=== PATIENT | male | born 1950 | race Caucasian/White ===

== ENCOUNTER 2022-04-07 00:25 | Inpatient (IN) | payer OTHER ==
[~2022-04-07] VITALS: Ht 167.6 cm; Wt 81.6 kg
[2022-04-07 00:25] VITALS: BP 112/78
--- NOTE | 2022-04-07 00:28 | NUR ---
TO BED #05, BIBA FROM HOME, WITH C/O BODY MALAISE
--- NOTE | 2022-04-07 01:00 | NUR ---
71 Y/O M PRESENTS WITH MALAISE. PT STATED "I FEEL WEAK AND TIRED." PT DENIES ANY PAIN AT THE MOMENT. PT IS A&OX4, SKIN INTACT, DENIES ANY NVD. PMH- PT DENIES NKA
[2022-04-07 01:06] LABS: BASOPHILS # (AUTO) 0.1 K/uL (0.00-0.22); BASOPHILS % (AUTO) 0.8 % (0.0-2.0); EOSINOPHILS % (AUTO) 0.5 % (0.0-4.0); HEMOGLOBIN 12.3 g/dL (12.0-18.0); LYMPHOCYTES # (AUTO) 1.2 K/uL (2.0-11.5); MEAN CORPUSCULAR HEMOGLOBIN 31 pg (27-31); MEAN CORPUSCULAR HGB CONC 33 g/dL (33-37); MEAN CORPUSCULAR VOLUME 94.8 fL (80-94); MONOCYTES # (AUTO) 0.6 K/uL (0.8-1.0); MONOCYTES % (AUTO) 9.2 % (1.7-9.3); NEUTROPHILS # (AUTO) 4.8 K/uL (1.8-7.7); NEUTROPHILS % (AUTO) 71.5 % (42.2-75.2); PLATELET COUNT (AUTO) 399 K/uL (140-450); RED CELL DISTRIBUTION WIDTH 14.1 % (11.6-13.7); WHITE BLOOD COUNT (AUTO) 6.7 K/uL (4.8-10.8)
[2022-04-07 01:23] LABS: ALBUMIN 3.2 g/dL (3.4-5.0); ANION GAP 11.2 (8-16); ASPARTATE AMINOTRANSFERASE 36 U/L (15-37); CHLORIDE 103 mmol/L (98-107); CREATININE 1.2 mg/dL (0.6-1.3); GLUCOSE 168 mg/dL (74-106); POTASSIUM 4.2 mmol/L (3.5-5.1); SODIUM SERUM 139 mmol/L (136-145); TOTAL BILIRUBIN 0.7 mg/dL (0.0-1.0); UREA NITROGEN, BLOOD 32 mg/dL (7-18)
--- NOTE | 2022-04-07 01:30 | NUR ---
DR. EVANS AT BEDSIDE
--- NOTE | 2022-04-07 03:30 | NUR ---
PT STATED HE FEELS WEAK AND TIRED
--- NOTE | 2022-04-07 04:25 | NUR ---
Dr. Hermosillo explained results and treatment plans.
[2022-04-07] MEDS ORDERED: NACL 0.9% 500 ML IV ONE (04:50)
[2022-04-07 05:10] LABS: APPEARANCE,URINE CLEAR (CLEAR); BILIRUBIN,URINE NEGATIVE (NEGATIVE); BLOOD, URINE NEGATIVE (NEGATIVE); COLOR,URINE YELLOW (YELLOW); LEUKOCYTE ESTERASE ,URINE NEGATIVE (NEGATIVE); NITRITE, URINE NEGATIVE (NEGATIVE); PH,URINE 5.5 (5.0-9.0); UGLUCOSE NEGATIVE (NEGATIVE)
[2022-04-07 05:47] LABS: BARBITURATE, URINE NEGATIVE ng/ml (NEG <=200); BENZODIAZEPINE, URINE NEGATIVE ng/mL (NEG <=200); CANNABINOID, URINE POSITIVE ng/mL (NEG <=50); COCAINE, URINE NEGATIVE ng/mL (NEG <=300); OPIATE, URINE NEGATIVE ng/mL (NEG <=2000); PHENCYCLIDINE SCREEN,URINE NEGATIVE ng/mL (NEG <=25)
--- NOTE | 2022-04-07 05:55 | NUR ---
daughter awaiting update, stated to call when pt is discharged. daughter number [phone] julee sandoval
--- NOTE | 2022-04-07 06:18 | NUR ---
PT TO CT
--- NOTE | 2022-04-07 06:35 | NUR ---
PT BACK FROM CT AND ON CONDEMNATION ENGINEER
--- NOTE | 2022-04-07 07:23 | NUR ---
Recieved report from TONYA Machuca for transfer of care.
[2022-04-07] MEDS ORDERED: AZITHROMYCIN 500 MG in DEXTROSE 5% 250 ML IV ONE (08:15)
[2022-04-07] MEDS ORDERED: GABA300C PO (08:22)
[2022-04-07] MEDS ORDERED: DULO30EC PO (08:22)
[2022-04-07] MEDS ORDERED: ALBU90AE (08:22)
[2022-04-07] MEDS ORDERED: BACL10TA4 PO (08:22)
[2022-04-07] MEDS ORDERED: METF-713 PO (08:22)
[2022-04-07] MEDS ORDERED: CEFP200T21 PO (08:22)
[2022-04-07] MEDS ORDERED: cefTRIAXone 1,000 MG VIAL ONE (08:23)
[2022-04-07] MEDS ORDERED: NACL 0.9% 1,000 ML IV ONE (08:25)
[2022-04-07] MEDS ORDERED: HYDROcodone/APAP 7.5/325 MG 1 TAB PO PRN (08:40)
[2022-04-07] MEDS ORDERED: DOCUSATE SODIUM 100 MG GELCAP PO PRN (08:40)
[2022-04-07] MEDS ORDERED: ONDANSETRON 4 MG/2 ML VIAL IM/IVP PRN (08:40)
[2022-04-07] MEDS ORDERED: ACETAMINOPHEN 325 MG TAB PO PRN (08:40)
[2022-04-07] MEDS ORDERED: ZOLPIDEM 5 MG TAB PO PRN (08:40)
[2022-04-07] MEDS ORDERED: guaiFENesin DM 200/20 MG-10 ML 10 ML UDC PO PRN (08:40)
[2022-04-07] MEDS ORDERED: POTASSIUM CHLORIDE 10 MEQ TABER PO PRN (08:40)
[2022-04-07] MEDS ORDERED: AZITHROMYCIN 500 MG INJ VIAL IV ONE (08:54)
[2022-04-07] MEDS ORDERED: metFORMIN 850 MG TAB PO SCH (09:00)
[2022-04-07] MEDS: NACL 0.9% 1,000 ML IV SCH ×2 (09:07→21:25)
--- NOTE | 2022-04-07 09:10 | NUR ---
Patient was offered breakfast tray.
[2022-04-07 09:17] LABS: PROTHROMBIN TIME 9.8 secs (10.8-13.4)
--- NOTE | 2022-04-07 09:22 | NUR ---
Dr. Mcneal, admitting doctor, evaluating patient at bedside.
[2022-04-07] MEDS: PANTOPRAZOLE 40 MG TABEC PO SCH (09:35)
[2022-04-07] MEDS: DULoxetine 30 MG CAPDR PO SCH ×2 (09:35→21:22)
[2022-04-07 09:40] LABS: CHOL/HDL RATIO 2.5 (1-4.5); FREE T4 (FREE THYROXINE) 1.05 ng/dL (0.76-1.46); MAGNESIUM 1.8 mg/dL (1.8-2.4); PHOSPHORUS 4.4 mg/dL (2.5-4.9); THYROID STIMULATING HORMONE 0.92 uIU/mL (0.34-3.74)
[2022-04-07] MEDS: BLOOD GLUCOSE MONITORING 1 DEV DEV FS SCH ×3 (11:42→21:23)
--- NOTE | 2022-04-07 11:48 | NUR ---
Patient will be admitted to care of Dr. Mcneal. Admited to Telemetry. Will go to room 111-B. Belongings list completed. Report to GEOVANNA Bartlett.
--- NOTE | 2022-04-07 11:49 | NUR ---
The patient's care was reviewed and supervised by Yulissa Spencer, RN, RN.
[2022-04-07 12:05] VITALS: BP 119/64
--- NOTE | 2022-04-07 12:26 | NUR ---
ADMISSION OF A 71 YEAR OLD MALE UNDER THE CARE OF DOCTOR NATHEN FOR PNEUMONIA/DEHYDRATION/WEAKNESS.
--- NOTE | 2022-04-07 13:17 | NUR ---
CT MECHANICAL HANDYMAN NOTES ANGIO CT RESULTS AVAILABLE VIA THE CHEST/ABDOMEN/PELVIS VIEW THAT WAS TAKEN.
[2022-04-07 13:20] LABS: BARBITURATE, URINE NEGATIVE ng/ml (NEG <=200); BENZODIAZEPINE, URINE NEGATIVE ng/mL (NEG <=200); CANNABINOID, URINE POSITIVE ng/mL (NEG <=50); COCAINE, URINE NEGATIVE ng/mL (NEG <=300); OPIATE, URINE NEGATIVE ng/mL (NEG <=2000); PHENCYCLIDINE SCREEN,URINE NEGATIVE ng/mL (NEG <=25)
[2022-04-07 16:00] VITALS: BP 109/58
--- NOTE | 2022-04-07 16:00 | NUR ---
LEFT ACHILI DRY BROWN SCAB 0.5X0.5CM NOT A DIABETIC ULCER, IT IS FROM RUBBING AGAINST SHOE. POC DISCUSSED WITH PRIMARY RN DOMINIK MAY APPLY SKIN PREP WIPE BID. POC DISCUSSED WITH PT. PT. VERBALIZES UNDERSTANDING.
--- NOTE | 2022-04-07 18:14 | NUR ---
P.T. NOTES P.T. EVAL COMPLETED; REFER TO EVAL FOR DETAILS.
--- NOTE | 2022-04-07 19:54 | NUR ---
PATIENT AWAKE ALERT ORIENTED ON ROOM AIR WITH EPISODE OF CONFUSION. NO SOB NOTED. BREATHING REGULAR NON LABORED. AMBULATORY. ABLE TO COMMUNICATE WITH HIS NEEDS. IV SITE ON THE LEFT HAND 20 GAUGE INFUSING NS 85 ML/HR. CALL LIGHT ON EASY REACH. SAFETY MEASURES IN PLACE.
[2022-04-07 20:00] VITALS: BP 126/72
--- NOTE | 2022-04-07 21:23 | NUR ---
CHECKED BLOOD SUGAR WAS 126. NO INSULIN COVERAGE NEEDED.
--- NOTE | 2022-04-07 21:24 | NUR ---
ADMINISTERED SCHEDULED DUE MEDICATION.
[2022-04-08] VITALS: BP 104/68
[2022-04-08 04:00] VITALS: BP 110/67
[2022-04-08] MEDS: BLOOD GLUCOSE MONITORING 1 DEV DEV FS SCH ×4 (06:43→21:09)
--- NOTE | 2022-04-08 06:52 | NUR ---
PATIENT NEEDS MET THROUGHOUT THE SHIFT. PT STABLE.
[2022-04-08 07:04] LABS: BASOPHILS % (AUTO) 0.3 % (0.0-2.0); EOSINOPHILS # (AUTO) 0.1 K/uL (0-0.4); EOSINOPHILS % (AUTO) 1.9 % (0.0-4.0); HEMOGLOBIN 11.5 g/dL (12.0-18.0); LYMPHOCYTES # (AUTO) 1.3 K/uL (2.0-11.5); LYMPHOCYTES % (AUTO) 20.2 % (20.5-51.1); MEAN CORPUSCULAR HEMOGLOBIN 32 pg (27-31); MEAN CORPUSCULAR HGB CONC 34 g/dL (33-37); MEAN CORPUSCULAR VOLUME 94.4 fL (80-94); MONOCYTES # (AUTO) 0.5 K/uL (0.8-1.0); MONOCYTES % (AUTO) 7.2 % (1.7-9.3); NEUTROPHILS # (AUTO) 4.7 K/uL (1.8-7.7); NEUTROPHILS % (AUTO) 70.4 % (42.2-75.2); PLATELET COUNT (AUTO) 355 K/uL (140-450); RED BLOOD CELL COUNT(AUTO) 3.61 MIL/uL (4.20-6.10); RED CELL DISTRIBUTION WIDTH 13.6 % (11.6-13.7); WHITE BLOOD COUNT (AUTO) 6.6 K/uL (4.8-10.8)
[2022-04-08 07:14] LABS: ANION GAP 10.7 (8-16); CARBON DIOXIDE 27.2 mmol/L (21-32); CHLORIDE 106 mmol/L (98-107); CREATININE 0.8 mg/dL (0.6-1.3); GLUCOSE 115 mg/dL (74-106); POTASSIUM 4.9 mmol/L (3.5-5.1); SODIUM SERUM 139 mmol/L (136-145); UREA NITROGEN, BLOOD 23 mg/dL (7-18)
[2022-04-08 08:08] LABS: T4 (THYROXINE) 5.1 ug/dL (4.5-12.0)
[2022-04-08] MEDS: NACL 0.9% 1,000 ML IV SCH ×2 (08:22→16:10)
[2022-04-08] MEDS: PANTOPRAZOLE 40 MG TABEC PO SCH (08:23)
[2022-04-08] MEDS: DULoxetine 30 MG CAPDR PO SCH ×2 (08:23→21:09)
--- NOTE | 2022-04-08 09:09 | NUR ---
NURSES NOTE PATIENT A/OX3 , RECEIVED AT BED SIDE , AMBULATORY , VSS , SINUS RHYTHM ON MONITOR , ON IV FLUID 85CC/H NO COMPLAIN AT THIS TIME , AMBULATORY , SKIN NOT INTACT SEE SKIN ASSESSMENT , EDUCTION GIVEN ABOUT MEDS PAIN MEDS , CARE PLAN , SAFETY ON PLACE , SIDE RAILS UP X3 , BED IN LOWER POSITION , CALL LIGHT WITHIN REACH . STILL UNDER OBSERVE .
[2022-04-08 09:14] VITALS: BP 122/74
--- NOTE | 2022-04-08 10:19 | NUR ---
PATIENT HAS BEEN SCREENED AND CATEGORIZED MODERATE NUTRITION RISK. PATIENT WILL BE SEEN WITHIN 3-[address] DA[address] OF [address]MISSION. ELLIE [address]
[2022-04-08 12:10] VITALS: BP 134/54
--- NOTE | 2022-04-08 13:14 | NUR ---
NURSES NOTE PATIENT A/OX4 , VSS , ACCO CHECK NORMAL , SINUS RHYTHM ON MONITOR , ON IV FLUID NO COMPLAIN AT THIS TIME , STILL UNDER OBSERVE .
--- NOTE | 2022-04-08 16:08 | NUR ---
NURSES NOTE PATIENT A/OX4 , VSS , SINUS ON MONITOR , AMBULATORY , CONTINENTX2 , SKIN NOT INTACT ON ROOM AIR , ON REGULAR DIET , ON IV FLUID N/S 0.9% 85CC/H , SAFETY ON PLACE STILL UNDER OBSERVE .
[2022-04-08 16:56] VITALS: BP 118/51
[2022-04-08 16:59] LABS: ALBUMIN 2.6 g/dL (3.4-5.0); ANION GAP 9.8 (8-16); ASPARTATE AMINOTRANSFERASE 8 U/L (15-37); CARBON DIOXIDE 27.6 mmol/L (21-32); CHLORIDE 104 mmol/L (98-107); CREATININE 0.9 mg/dL (0.6-1.3); GLUCOSE 144 mg/dL (74-106); POTASSIUM 4.4 mmol/L (3.5-5.1); SODIUM SERUM 137 mmol/L (136-145); TOTAL BILIRUBIN 0.3 mg/dL (0.0-1.0); UREA NITROGEN, BLOOD 22 mg/dL (7-18)
--- NOTE | 2022-04-08 19:08 | NUR ---
SHIFTE REPORT GIVEN TO SHANON AUSTIN ALL HER QUESTION ANSWER .
[2022-04-08 20:00] VITALS: BP 155/82
--- NOTE | 2022-04-08 20:05 | NUR ---
PATIENT IN BED AWAKE RESTING ON ROOM AIR. NO S/S OF RESPIRATORY DISTRESS. BREATHING NORMAL. NO COMPLAINTS OF PAIN. IVF NS 85 ML/HR INFUSING WELL. CALL LIGHT IN REACH. AMBULATORY. SAFETY MEASURES IN PLACE.
--- NOTE | 2022-04-08 21:09 | NUR ---
DUE MEDICATION GIVEN.
[2022-04-09] VITALS: BP 144/71
[2022-04-09 04:00] VITALS: BP 130/88
[2022-04-09] MEDS: NACL 0.9% 1,000 ML IV SCH ×2 (05:50→08:11)
[2022-04-09] MEDS: BLOOD GLUCOSE MONITORING 1 DEV DEV FS SCH ×2 (06:36→12:17)
--- NOTE | 2022-04-09 06:37 | NUR ---
CHECK BLOOD SUGAR WAS 93. NO INSULIN COVERAGE NEEDED.
[2022-04-09 06:48] LABS: BASOPHILS % (AUTO) 0.3 % (0.0-2.0); EOSINOPHILS # (AUTO) 0.2 K/uL (0-0.4); HEMATOCRIT 32.6 % (36-52); HEMOGLOBIN 11.2 g/dL (12.0-18.0); LYMPHOCYTES # (AUTO) 1.3 K/uL (2.0-11.5); LYMPHOCYTES % (AUTO) 23.4 % (20.5-51.1); MEAN CORPUSCULAR HEMOGLOBIN 31 pg (27-31); MEAN CORPUSCULAR HGB CONC 34 g/dL (33-37); MEAN CORPUSCULAR VOLUME 91.3 fL (80-94); MONOCYTES # (AUTO) 0.4 K/uL (0.8-1.0); MONOCYTES % (AUTO) 6.9 % (1.7-9.3); NEUTROPHILS # (AUTO) 3.7 K/uL (1.8-7.7); NEUTROPHILS % (AUTO) 66.4 % (42.2-75.2); PLATELET COUNT (AUTO) 375 K/uL (140-450); RED BLOOD CELL COUNT(AUTO) 3.57 MIL/uL (4.20-6.10); RED CELL DISTRIBUTION WIDTH 13.7 % (11.6-13.7); WHITE BLOOD COUNT (AUTO) 5.6 K/uL (4.8-10.8)
[2022-04-09 06:50] LABS: ANION GAP 9.1 (8-16); CARBON DIOXIDE 29.7 mmol/L (21-32); CHLORIDE 102 mmol/L (98-107); CREATININE 0.9 mg/dL (0.6-1.3); GLUCOSE 101 mg/dL (74-106); POTASSIUM 4.8 mmol/L (3.5-5.1); SODIUM SERUM 136 mmol/L (136-145); UREA NITROGEN, BLOOD 16 mg/dL (7-18)
--- NOTE | 2022-04-09 07:30 | NUR ---
ENDORSED PATIENT TO DAY SHIFT NURSE FOR CONTINUITY OF CARE.
--- NOTE | 2022-04-09 07:41 | NUR ---
NURSES NOTE PATIENT A/OX3 , RECEIVED AT BED SIDE , AMBULATORY , VSS , SINUS RHYTHM ON MONITOR , ON IV FLUID 85CC/H NO COMPLAIN AT THIS TIME , AMBULATORY , SKIN NOT INTACT SEE SKIN ASSESSMENT , EDUCTION GIVEN ABOUT MEDS PAIN MEDS , CARE PLAN , SAFETY ON PLACE , SIDE RAILS UP X3 , BED IN LOWER POSITION , CALL LIGHT WITHIN REACH , CONTINENTX2 . STILL UNDER OBSERVE .
[2022-04-09] MEDS: DULoxetine 30 MG CAPDR PO SCH (08:11)
[2022-04-09] MEDS: PANTOPRAZOLE 40 MG TABEC PO SCH (08:11)
[2022-04-09 09:39] VITALS: BP 150/85
[2022-04-09 11:43] VITALS: BP 151/84
[2022-04-09 12:24] VITALS: BP 151/84
--- NOTE | 2022-04-09 12:25 | NUR ---
nurses note PATIENT A/OX3 , VSS , SINUS ON MONITOR DINES OF ANY COMPLAIN , HE HAS DISCHARGE ORDER TO GO HOME DISCHARGE PACKET EXPLAIN FOR PATIENT , PT VERBALIZED UNDERSTANDING OF GIVEN , MEDICATION RECONCILED ALL HID DOCUMENT SING AND PLACED ON CHART , ARM BAND , IV AND HEART MONITOR REMOVED , ASSISTED TO LOBBY AND PICKED UP BY HIS FAMILY .
== END 2022-04-09 13:10 | disposition home or self-care (01) | DRG 177 ==
LOC: MED 00:25 → MTU 09:20
PROVIDERS: ADMIT Family Medicine; ATTEND Family Medicine
DX: J69.0 Pneumonitis due to inhalation of food and vomit (principal); G93.41 Metabolic encephalopathy; E44.1 Mild protein-calorie malnutrition; R65.10 Systemic inflammatory response syndrome (SIRS) of non-infectious origin without acute organ dysfunction; Z20.822 Contact with and (suspected) exposure to COVID-19; E11.40 Type 2 diabetes mellitus with diabetic neuropathy, unspecified; Z79.899 Other long term (current) drug therapy; Z68.29 Body mass index [BMI] 29.0-29.9, adult
CPT/HCPCS: 36415; 71045; 71275; 80048; 80053; 80305; 81003; 82150; 82948; 83036; 83605; 83690; 83735; 83880; 84100; 84436; 84439; 84443; 84479; 84484; 85025; 85379; 85610; 85730; 87040; 87081; 87086; 93005; 96361; 96365; 97163-GP; 99285; J0456; J0696; Q0092; Q9967

== ENCOUNTER 2022-07-26 10:45 | Emergency (ER) | payer OTHER ==
[~2022-07-26] VITALS: Ht 154.9 cm; Wt 90.7 kg
[~2022-07-26 10:45] MED LIST: ALBU90AE; BACL10TA4 PO; CEFP200T21 PO; GABA300C PO; METF-713 PO; [UNRECOGNIZED DRUG - CODE] PO
[2022-07-26 10:59] VITALS: BP 116/67
[2022-07-26] MEDS ORDERED: NACL 0.9% 1,000 ML IV ONE (12:50)
[2022-07-26] MEDS ORDERED: DIPHENOXYLATE /ATROPINE 2.5 MG TAB PO ONE (12:50)
[2022-07-26] MEDS ORDERED: KETOROLAC 15 MG/ML VIAL IVP ONE (12:50)
[2022-07-26] MEDS ORDERED: ONDANSETRON 4 MG/2 ML VIAL IVP ONE (12:50)
--- NOTE | 2022-07-26 13:16 | NUR ---
pt medicated per MD orders. patient tolerated. no known allergies verbalized from pt
[2022-07-26 13:46] LABS: BASOPHILS % (AUTO) 0.4 % (0.0-2.0); HEMATOCRIT 38.4 % (36-52); HEMOGLOBIN 13.3 g/dL (12.0-18.0); LYMPHOCYTES % (AUTO) 15.2 % (20.5-51.1); MEAN CORPUSCULAR HEMOGLOBIN 32 pg (27-31); MEAN CORPUSCULAR HGB CONC 35 g/dL (33-37); MEAN CORPUSCULAR VOLUME 92.2 fL (80-94); MONOCYTES # (AUTO) 0.4 K/uL (0.8-1.0); MONOCYTES % (AUTO) 6.1 % (1.7-9.3); NEUTROPHILS # (AUTO) 5.1 K/uL (1.8-7.7); NEUTROPHILS % (AUTO) 78.3 % (42.2-75.2); PLATELET COUNT (AUTO) 134 K/uL (140-450); RED BLOOD CELL COUNT(AUTO) 4.17 MIL/uL (4.20-6.10); RED CELL DISTRIBUTION WIDTH 14.3 % (11.6-13.7); WHITE BLOOD COUNT (AUTO) 6.5 K/uL (4.8-10.8)
--- NOTE | 2022-07-26 13:50 | NUR ---
medication reevaluated. pt states pain is 0/10 she is resting comfortably.
[2022-07-26 14:04] LABS: ALBUMIN 3.4 g/dL (3.4-5.0); ANION GAP 11.8 (8-16); ASPARTATE AMINOTRANSFERASE 20 U/L (15-37); CARBON DIOXIDE 28.1 mmol/L (21-32); CHLORIDE 101 mmol/L (98-107); CREATININE 1.3 mg/dL (0.6-1.3); GLUCOSE 105 mg/dL (74-106); LIPASE 42 U/L (73-393); POTASSIUM 3.9 mmol/L (3.5-5.1); SODIUM SERUM 137 mmol/L (136-145); UREA NITROGEN, BLOOD 18 mg/dL (7-18)
[2022-07-26] MEDS ORDERED: ATRO1TAB PO (14:15)
[2022-07-26] MEDS ORDERED: ONDA-188 SL (14:15)
--- NOTE | 2022-07-26 14:30 | NUR ---
IV removed, catheter intact and site benign. Applied folded 4x4 gauze and tape to stop bleeding.
[2022-07-26 14:36] VITALS: BP 112/65
--- NOTE | 2022-07-26 14:36 | NUR ---
Patient discharged with v/s stable. Written and verbal after care instructions given and explained. Patient alert, oriented and verbalized understanding of instructions. Ambulatory with steady gait. All questions addressed prior to discharge. ID band removed. Patient advised to follow up with PMD. Rx of lomotil,zofran given. Patient educated on indication of medication including possible reaction and side effects. Opportunity to ask questions provided and answered.
== END 2022-07-26 14:36 | disposition home or self-care (01) ==
LOC: MED 10:45
DX: A08.4 Viral intestinal infection, unspecified (principal); R11.2 Nausea with vomiting, unspecified; R19.7 Diarrhea, unspecified; R63.0 Anorexia; E11.9 Type 2 diabetes mellitus without complications; I10 Essential (primary) hypertension; F17.210 Nicotine dependence, cigarettes, uncomplicated; Z79.899 Other long term (current) drug therapy
CPT/HCPCS: 36415; 80053; 82948; 83690; 85025; 96361; 96374; 96375; 99284; J1885; J2405

== ENCOUNTER 2022-07-27 10:14 | Emergency (ER) | payer OTHER ==
[~2022-07-27] VITALS: Ht 172.7 cm; Wt 83.9 kg
[~2022-07-27 10:14] MED LIST changes: +ATRO1TAB PO; +ONDA-188 SL
[2022-07-27 10:24] VITALS: BP 128/75
--- NOTE | 2022-07-27 10:24 | NUR ---
PATIENT AMBULATED TO ER BED 04
[2022-07-27] MEDS ORDERED: ONDANSETRON 4 MG ODT PO ONE (10:40)
--- NOTE | 2022-07-27 11:14 | NUR ---
Patient discharged with v/s stable. Written and verbal after care instructions given and explained to parent/guardian. Parent/Guardian verbalized understanding of instructions. Ambulatory with steady gait. All questions addressed prior to discharge. ID band removed. Parent/Guardian advised to follow up with PMD. Rx of CLOTRIMAZOLE given. Opportunity to ask questions provided and answered.
== END 2022-07-27 11:14 | disposition home or self-care (01) ==
LOC: MED 10:14
DX: A08.4 Viral intestinal infection, unspecified (principal); E11.9 Type 2 diabetes mellitus without complications; I10 Essential (primary) hypertension; Z79.899 Other long term (current) drug therapy
CPT/HCPCS: 99283; Q0162

== ENCOUNTER 2022-08-22 19:33 | Emergency (ER) | payer OTHER ==
[~2022-08-22] VITALS: Ht 154.9 cm; Wt 90.7 kg
[2022-08-22 19:40] VITALS: BP 145/80; PULSE 86; RESP 16; TEMP 97.4; O2SAT 99
[2022-08-22 19:45] VITALS: O2SAT 99
--- NOTE | 2022-08-22 19:46 | NUR ---
TO BED 6 FOLLOWING TRIAGE
--- NOTE | 2022-08-22 19:46 | NUR ---
PT TAKEN TO BED 6
--- NOTE | 2022-08-22 20:08 | NUR ---
71 Y/O M BIB SELF FROM HOME PRESENTS WITH R SHARP INTERMITTENT ABD PAIN 6 XYESTERDAY. DENIES NVD OR HEADACHES. PT STATES PAIN INTENSIFIES WITH DEEP BREATHING OR MOVEMENT. A&OX4, SKIN INTACT, AMBULATORY WITH CANE. PMH- DM, HTN NKA
[2022-08-22] MEDS ORDERED: IBUPROFEN 600 MG TAB PO ONE (20:40)
[2022-08-22] MEDS ORDERED: LIDOCAINE 5% 1 EA PATCH TP ONE (20:40)
--- NOTE | 2022-08-22 21:57 | NUR ---
Patient discharged with v/s stable. Written and verbal after care instructions given and explained. Patient verbalized understanding. Ambulatory with steady gait. All questions addressed prior to discharge. Advised to follow up with PMD.
== END 2022-08-22 21:57 | disposition home or self-care (01) ==
LOC: MED 19:33
DX: R07.89 Other chest pain (principal); E11.9 Type 2 diabetes mellitus without complications; I10 Essential (primary) hypertension; Z79.4 Long term (current) use of insulin; Z79.899 Other long term (current) drug therapy
CPT/HCPCS: 71101; 93005; 99283

== ENCOUNTER 2022-11-22 06:03 | Day surgery (SDC) | payer OTHER ==
[~2022-11-22] VITALS: Ht 152.4 cm; Wt 77.1 kg
[2022-11-22] MEDS ORDERED: diphenhydrAMINE 50 MG/ML VIAL ONE (07:20)
[2022-11-22] MEDS ORDERED: fentaNYL citrate 0.05 MG/ML VIAL ONE ×2 (07:20→07:21)
[2022-11-22] MEDS ORDERED: MIDAZOLAM 5 MG/5 ML VIAL ONE (07:20)
[2022-11-22] MEDS ORDERED: MIDAZOLAM 2 MG/2 ML VIAL IVP ONE (08:05)
[2022-11-22] MEDS ORDERED: fentaNYL citrate 0.05 MG/ML VIAL IVP ONE (08:05)
== END 2022-11-22 09:00 | disposition home or self-care (01) ==
LOC: MDS 06:03 → MMU 06:21 → MDS 09:00
PROVIDERS: ATTEND Internal Medicine Gastroenterology
DX: K74.69 Other cirrhosis of liver (principal); C22.0 Liver cell carcinoma; K29.50 Unspecified chronic gastritis without bleeding; I10 Essential (primary) hypertension; E11.9 Type 2 diabetes mellitus without complications; E78.00 Pure hypercholesterolemia, unspecified; M19.90 Unspecified osteoarthritis, unspecified site; J44.9 Chronic obstructive pulmonary disease, unspecified; Z79.84 Long term (current) use of oral hypoglycemic drugs; Z79.899 Other long term (current) drug therapy
CPT/HCPCS: 43239; 82948; 88305; 88312; 88313; 88342; J1200; J2250; J3010

== ENCOUNTER 2023-01-14 19:46 | Emergency (ER) | payer OTHER ==
[~2023-01-14] VITALS: Ht 154.9 cm; Wt 79.4 kg
[2023-01-14 19:46] VITALS: BP 134/79; PULSE 104; RESP 18; TEMP 98; O2SAT 96
[2023-01-14 19:58] VITALS: O2SAT 95
[2023-01-14 20:44] LABS: BASOPHILS # (AUTO) 0.1 K/uL (0.00-0.22); EOSINOPHILS # (AUTO) 0.2 K/uL (0-0.4); EOSINOPHILS % (AUTO) 3.3 % (0.0-4.0); HEMATOCRIT 41.3 % (36-52); HEMOGLOBIN 13.9 g/dL (12.0-18.0); LYMPHOCYTES # (AUTO) 1.7 K/uL (2.0-11.5); LYMPHOCYTES % (AUTO) 31.5 % (20.5-51.1); MEAN CORPUSCULAR HEMOGLOBIN 30 pg (27-31); MEAN CORPUSCULAR HGB CONC 34 g/dL (33-37); MEAN CORPUSCULAR VOLUME 90.5 fL (80-94); MONOCYTES # (AUTO) 0.4 K/uL (0.8-1.0); MONOCYTES % (AUTO) 7.9 % (1.7-9.3); NEUTROPHILS # (AUTO) 3.1 K/uL (1.8-7.7); NEUTROPHILS % (AUTO) 56.3 % (42.2-75.2); PLATELET COUNT (AUTO) 211 K/uL (140-450); RED BLOOD CELL COUNT(AUTO) 4.57 MIL/uL (4.20-6.10); RED CELL DISTRIBUTION WIDTH 14.1 % (11.6-13.7); WHITE BLOOD COUNT (AUTO) 5.5 K/uL (4.8-10.8)
[2023-01-14 21:07] LABS: BLOOD GAS HCO3 28.2 mmol/L (22-26); BLOOD GAS PCO2 40.8 mmHg (35-45); BLOOD GAS PH 7.457 (7.35-7.45); BLOOD GAS PO2 67.9 mmHg (75-100)
[2023-01-14 21:19] LABS: ALANINE AMINOTRANSFERASE 19 U/L (12-78); ALBUMIN 3.1 g/dL (3.4-5.0); ALKALINE PHOSPHATASE 230 U/L (50-136); ANION GAP 15.2 (8-16); ASPARTATE AMINOTRANSFERASE 12 U/L (15-37); CARBON DIOXIDE 25.6 mmol/L (21-32); CHLORIDE 102 mmol/L (98-107); CREATININE 0.9 mg/dL (0.6-1.3); GLUCOSE 179 mg/dL (74-106); POTASSIUM 3.8 mmol/L (3.5-5.1); SODIUM SERUM 139 mmol/L (136-145); TOTAL BILIRUBIN 0.5 mg/dL (0.0-1.0); TOTAL PROTEIN, SERUM 7.1 g/dL (6.4-8.2); UREA NITROGEN, BLOOD 20 mg/dL (7-18)
[2023-01-14] MEDS ORDERED: AMOX1TAB8 PO (21:38)
[2023-01-14] MEDS ORDERED: AZIT250T4 PO (21:38)
[2023-01-14] MEDS ORDERED: BENZ200C4 PO (21:38)
[2023-01-14 21:49] VITALS: BP 155/92; PULSE 94; RESP 18; TEMP 99.2; O2SAT 96
== END 2023-01-14 20:49 | disposition home or self-care (01) ==
LOC: MED 19:46
DX: J18.9 Pneumonia, unspecified organism (principal); R55 Syncope and collapse; E11.9 Type 2 diabetes mellitus without complications; I10 Essential (primary) hypertension; E78.5 Hyperlipidemia, unspecified; Z87.891 Personal history of nicotine dependence; Z79.899 Other long term (current) drug therapy; Z79.2 Long term (current) use of antibiotics
CPT/HCPCS: 36415; 36600; 71045; 80053; 82803; 84484; 85025; 93005; 99285; Q0092

== ENCOUNTER 2023-07-22 13:22 | Inpatient (IN) | payer OTHER ==
[~2023-07-22] VITALS: Ht 162.6 cm; Wt 82.7 kg
[~2023-07-22 13:22] MED LIST changes: -ALBU90AE; +ALBU90AE2; +AMOX1TAB8 PO; +AZIT250T4 PO; +BENZ200C4 PO
[2023-07-22 13:28] VITALS: BP 118/72; PULSE 119; RESP 20; TEMP 98.1; O2SAT 99
[2023-07-22 14:30] LABS: HEMOGLOBIN 12.4 g/dL (12.0-18.0); MEAN CORPUSCULAR HEMOGLOBIN 31 pg (27-31); MEAN CORPUSCULAR HGB CONC 33 g/dL (33-37); MEAN CORPUSCULAR VOLUME 96.1 fL (80-94); PLATELET COUNT (AUTO) 251 K/uL (140-450); RED BLOOD CELL COUNT(AUTO) 3.96 MIL/uL (4.20-6.10); RED CELL DISTRIBUTION WIDTH 16.3 % (11.6-13.7)
[2023-07-22 14:34] LABS: WHITE BLOOD COUNT (AUTO) 31.5 K/uL (4.8-10.8)
[2023-07-22] MEDS ORDERED: PIPERACILLIN/TAZOBACTAM 3.375 GM VIAL IV ONE ×2 (14:44→18:34)
[2023-07-22 14:46] LABS: ANION GAP 10.8 (8-16); CALCIUM 8.7 mg/dL (8.5-10.1); CARBON DIOXIDE 30.6 mmol/L (21-32); CHLORIDE 100 mmol/L (98-107); CREATININE 1.1 mg/dL (0.6-1.3); GLUCOSE 146 mg/dL (74-106); POTASSIUM 5.4 mmol/L (3.5-5.1); SODIUM SERUM 136 mmol/L (136-145); UREA NITROGEN, BLOOD 33 mg/dL (7-18)
[2023-07-22 14:47] LABS: BASOPHILS % (MANUAL) 0 % (0-2); EOSINOPHILS % (MANUAL) 0 % (0-4); LYMPHOCYTES % (MANUAL) 1 % (20-46); METAMYELOCYTES % 3 % (0-0); MONOCYTES % (MANUAL) 1 % (5-12); MYELOCYTES % 2 % (0-0); PLATELET ESTIMATE ADEQUATE; SMUDGE CELLS FEW
[2023-07-22 14:48] LABS: ANISOCYTOSIS 1+; INR 0.88 (0.8-1.2); PARTIAL THROMBOPLASTIN TIME 21.6 secs (22-35.6); PROTHROMBIN TIME 9.3 secs (10.8-13.4)
[2023-07-22] MEDS: PIPERACILLIN/TAZOBACTAM 3.375 GM in DEXTROSE 5% 50 ML IV ONE (14:57)
[2023-07-22 14:58] LABS: LACTIC ACID 2.5 mmol/L (0.4-2.0)
[2023-07-22 15:03] LABS: ALANINE AMINOTRANSFERASE 31 U/L (12-78); ALBUMIN 1.9 g/dL (3.4-5.0); ALKALINE PHOSPHATASE 335 U/L (50-136); ASPARTATE AMINOTRANSFERASE 43 U/L (15-37); BILIRUBIN,DIRECT 0.3 mg/dL (0.0-0.3); CREATINE KINASE, TOTAL 71 U/L (39-308); TOTAL BILIRUBIN 0.6 mg/dL (0.0-1.0); TOTAL PROTEIN, SERUM 6.1 g/dL (6.4-8.2)
[2023-07-22] MEDS: FUROSEMIDE 40 MG/4 ML VIAL IVP ONE (15:03)
[2023-07-22] MEDS ORDERED: VANCOMYCIN 1,000 MG VIAL ONE (15:26)
[2023-07-22] MEDS: VANCOMYCIN 1,000 MG in DEXTROSE 5% 250 ML IV ONE (15:35)
[2023-07-22] MEDS ORDERED: ZOLPIDEM 5 MG TAB PO PRN (15:35)
[2023-07-22] MEDS ORDERED: VANCOMYCIN PER PHARMACY MC PRN (15:40)
[2023-07-22] MEDS ORDERED: DEXTROSE 50% 50 ML SYR IVP PRN (15:45)
[2023-07-22] MEDS: DIAZEPAM PFS 10 MG/2 ML SYR IVP ONE (16:00)
[2023-07-22] MEDS ORDERED: CALCIUM CHLORIDE 10% 100 MG/ML SYR IVP ONE (16:03)
[2023-07-22] MEDS ORDERED: CALCIUM GLUC 1 GM/50 mL NS BAG 50 ML IV ONE ×2 (16:05→16:09)
[2023-07-22] MEDS: ROCURONIUM 50 MG/5 ML VIAL IV ONE (16:10)
[2023-07-22] MEDS: CALCIUM GLUCONATE 10% 1,000 MG in NACL 0.9% 50 ML IV ONE (16:10)
[2023-07-22] MEDS ORDERED: NOREPINEPHRINE 4 MG/4 ML VIAL IV ONE (16:22)
[2023-07-22] MEDS: NOREPINEPHRINE 4 MG in DEXTROSE 5% 250 ML IV PRN (16:30)
[2023-07-22] MEDS: PROPOFOL 1000 MG/100 ML PREMIX 100 ML IV ONE (16:30)
[2023-07-22 16:53] VITALS: BP 104/70; PULSE 98; O2SAT 100; O2SAT 98
[2023-07-22] MEDS: VANCOMYCIN 1,000 MG in DEXTROSE 5% 250 ML IV SCH (17:00)
[2023-07-22] MEDS: ETOMIDATE 20 MG/10 ML VIAL IVP ONE (18:11)
[2023-07-22] MEDS: BLOOD GLUCOSE MONITORING 1 DEV DEV FS SCH (18:26)
[2023-07-22] MEDS: PIPERACILLIN/TAZOBACTAM 3.375 GM in DEXTROSE 5% 100 ML IV SCH (18:36)
[2023-07-22 19:17] LABS: FLU A ANTIGEN negative (NEGATIVE); FLU B ANTIGEN negative (NEGATIVE)
[2023-07-22] MEDS: NOREPINEPHRINE 16 MG in DEXTROSE 5% 250 ML IV PRN (20:00)
[2023-07-22] MEDS: NOREPINEPHRINE 4 MG/4 ML VIAL IV ONE (20:42)
[2023-07-22 20:43] VITALS: BP 101/47; PULSE 130; O2SAT 98
[2023-07-22] MEDS ORDERED: PROPOFOL 1000 MG/100 ML PREMIX 100 ML IV ONE (21:26)
[2023-07-22 23:27] VITALS: BP 85/54; PULSE 133; O2SAT 96
[2023-07-23] VITALS (24 sets, daily range): BP systolic 81–154; BP diastolic 50–86; PULSE 109–140; RESP 22–30; TEMP 97.2–99.2; O2SAT 96–100
[2023-07-23] MEDS ORDERED: PIPERACILLIN/TAZOBACTAM 3.375 GM VIAL IV ONE ×2 (00:03→06:06)
[2023-07-23] MEDS ORDERED: NOREPINEPHRINE 4 MG/4 ML VIAL IV ONE (01:13)
[2023-07-23] MEDS: VASOPRESSIN 40 UNITS in NACL 0.9% 250 ML IV PRN (02:51)
[2023-07-23] MEDS: VASOPRESSIN 20 UNITS/ML VIAL ONE (02:51)
[2023-07-23] MEDS ORDERED: PROPOFOL 1000 MG/100 ML PREMIX 100 ML IV ONE (06:07)
[2023-07-23] MEDS: NOREPINEPHRINE 4 MG/4 ML VIAL IV ONE ×3 (06:26→22:19)
[2023-07-23 07:08] LABS: BASOPHILS % (AUTO) 0.1 % (0.0-2.0); HEMATOCRIT 39.1 % (36-52); HEMOGLOBIN 12.9 g/dL (12.0-18.0); LYMPHOCYTES # (AUTO) 0.3 K/uL (2.0-11.5); LYMPHOCYTES % (AUTO) 1.1 % (20.5-51.1); MEAN CORPUSCULAR HEMOGLOBIN 31 pg (27-31); MEAN CORPUSCULAR HGB CONC 33 g/dL (33-37); MEAN CORPUSCULAR VOLUME 94.9 fL (80-94); MONOCYTES # (AUTO) 0.1 K/uL (0.8-1.0); MONOCYTES % (AUTO) 0.3 % (1.7-9.3); NEUTROPHILS # (AUTO) 23.8 K/uL (1.8-7.7); NEUTROPHILS % (AUTO) 98.5 % (42.2-75.2); PLATELET COUNT (AUTO) 163 K/uL (140-450); RED BLOOD CELL COUNT(AUTO) 4.12 MIL/uL (4.20-6.10); RED CELL DISTRIBUTION WIDTH 15.7 % (11.6-13.7); WHITE BLOOD COUNT (AUTO) 24.2 K/uL (4.8-10.8)
[2023-07-23 07:31] LABS: ALANINE AMINOTRANSFERASE 26 U/L (12-78); ALBUMIN 1.5 g/dL (3.4-5.0); ALKALINE PHOSPHATASE 251 U/L (50-136); ANION GAP 13.2 (8-16); ASPARTATE AMINOTRANSFERASE 46 U/L (15-37); CALCIUM 8.5 mg/dL (8.5-10.1); CARBON DIOXIDE 27.4 mmol/L (21-32); CHLORIDE 96 mmol/L (98-107); CREATININE 1.5 mg/dL (0.6-1.3); GLUCOSE 187 mg/dL (74-106); POTASSIUM 4.6 mmol/L (3.5-5.1); SODIUM SERUM 132 mmol/L (136-145); TOTAL BILIRUBIN 1.8 mg/dL (0.0-1.0); TOTAL PROTEIN, SERUM 5.3 g/dL (6.4-8.2); UREA NITROGEN, BLOOD 38 mg/dL (7-18)
[2023-07-23] MEDS: DOCUSATE 100 MG/10 ML UDC PO SCH (09:20)
[2023-07-23] MEDS: PANTOPRAZOLE 40 MG INJ VIAL IVP SCH (10:22)
[2023-07-23] MEDS: INSULIN LISPRO SLIDING SCALE 100 UNITS/ML VIAL SUBQ PRN (12:03)
[2023-07-23 12:38] LABS: BLOOD GAS PCO2 41.7 mmHg (35-45); BLOOD GAS PH 7.353 (7.35-7.45)
[2023-07-23 12:39] LABS: BLOOD GAS BASE EXCESS -2.8 mmol/L (-2.0-2.0); BLOOD GAS HCO3 22.7 mmol/L (22-26); BLOOD GAS PO2 164.4 mmHg (75-100)
[2023-07-23] MEDS: ALBUTEROL SULFATE/IPRATROPIU 3 ML SOL IH PRN (13:57)
[2023-07-23] MEDS: NACL 0.9% 1,000 ML IV SCH ×2 (14:14)
[2023-07-23] MEDS: ALBUTEROL SULFATE/IPRATROPIU 3 ML SOL IH SCH (15:00)
[2023-07-23] MEDS: PROPOFOL 1000 MG/100 ML PREMIX 100 ML IV PRN (16:18)
[2023-07-23] MEDS: BLOOD GLUCOSE MONITORING 1 DEV DEV FS SCH (17:42)
[2023-07-23] MEDS: PIPERACILLIN/TAZOBACTAM 3.375 GM in DEXTROSE 5% 50 ML IV SCH (17:43)
[2023-07-24] VITALS (32 sets, daily range): BP systolic 89–164; BP diastolic 52–87; PULSE 91–206; RESP 22–30; TEMP 97.9–100.2; O2SAT 95–100
[2023-07-24] MEDS: AMIODARONE 150 MG in DEXTROSE 5% 100 ML IV ONE (02:45)
[2023-07-24] MEDS: AMIODARONE 150 MG/3 ML VIAL IV ONE (02:47)
[2023-07-24] MEDS: AMIODARONE 450 MG/9 ML VIAL IV ONE (02:48)
[2023-07-24] MEDS: AMIODARONE 450 MG in DEXTROSE 5% 250 ML IV SCH (02:55)
[2023-07-24] MEDS: NOREPINEPHRINE 4 MG/4 ML VIAL IV ONE (04:07)
[2023-07-24 06:07] LABS: ALANINE AMINOTRANSFERASE 24 U/L (12-78); ALBUMIN 1.1 g/dL (3.4-5.0); ALKALINE PHOSPHATASE 155 U/L (50-136); ANION GAP 14.2 (8-16); ASPARTATE AMINOTRANSFERASE 43 U/L (15-37); BASOPHILS % (AUTO) 0.2 % (0.0-2.0); CALCIUM 7.2 mg/dL (8.5-10.1); CARBON DIOXIDE 23.3 mmol/L (21-32); CHLORIDE 96 mmol/L (98-107); CREATININE 1.4 mg/dL (0.6-1.3); GLUCOSE 220 mg/dL (74-106); HEMATOCRIT 32.3 % (36-52); HEMOGLOBIN 10.8 g/dL (12.0-18.0); LYMPHOCYTES # (AUTO) 0.4 K/uL (2.0-11.5); LYMPHOCYTES % (AUTO) 4.6 % (20.5-51.1); MEAN CORPUSCULAR HEMOGLOBIN 32 pg (27-31); MEAN CORPUSCULAR HGB CONC 34 g/dL (33-37); MEAN CORPUSCULAR VOLUME 94.9 fL (80-94); MONOCYTES % (AUTO) 0.5 % (1.7-9.3); NEUTROPHILS # (AUTO) 8.3 K/uL (1.8-7.7); NEUTROPHILS % (AUTO) 94.7 % (42.2-75.2); PLATELET COUNT (AUTO) 75 K/uL (140-450); POTASSIUM 3.5 mmol/L (3.5-5.1); RED BLOOD CELL COUNT(AUTO) 3.41 MIL/uL (4.20-6.10); RED CELL DISTRIBUTION WIDTH 15.7 % (11.6-13.7); SODIUM SERUM 130 mmol/L (136-145); TOTAL BILIRUBIN 1.8 mg/dL (0.0-1.0); TOTAL PROTEIN, SERUM 4.7 g/dL (6.4-8.2); UREA NITROGEN, BLOOD 38 mg/dL (7-18); WHITE BLOOD COUNT (AUTO) 8.8 K/uL (4.8-10.8)
[2023-07-25] VITALS (32 sets, daily range): BP systolic 82–133; BP diastolic 44–83; PULSE 83–103; RESP 20–36; TEMP 97.1–98.5; O2SAT 93–100
[2023-07-25] MEDS: ONDANSETRON 4 MG/2 ML VIAL IVP PRN (00:58)
[2023-07-25] MEDS ORDERED: AMIODARONE 200 MG TAB PO ONE (02:30)
[2023-07-25 05:59] LABS: BASOPHILS % (AUTO) 0.2 % (0.0-2.0); EOSINOPHILS % (AUTO) 0.3 % (0.0-4.0); HEMATOCRIT 29.1 % (36-52); HEMOGLOBIN 9.9 g/dL (12.0-18.0); LYMPHOCYTES # (AUTO) 0.3 K/uL (2.0-11.5); LYMPHOCYTES % (AUTO) 14.9 % (20.5-51.1); MEAN CORPUSCULAR HEMOGLOBIN 32 pg (27-31); MEAN CORPUSCULAR HGB CONC 34 g/dL (33-37); MEAN CORPUSCULAR VOLUME 93.7 fL (80-94); MONOCYTES % (AUTO) 0.7 % (1.7-9.3); NEUTROPHILS # (AUTO) 1.6 K/uL (1.8-7.7); NEUTROPHILS % (AUTO) 83.9 % (42.2-75.2); PLATELET COUNT (AUTO) 25 K/uL (140-450); RED CELL DISTRIBUTION WIDTH 16.1 % (11.6-13.7)
[2023-07-25 06:21] LABS: ALANINE AMINOTRANSFERASE 22 U/L (12-78); ALKALINE PHOSPHATASE 200 U/L (50-136); ANION GAP 11.9 (8-16); ASPARTATE AMINOTRANSFERASE 32 U/L (15-37); CARBON DIOXIDE 25.6 mmol/L (21-32); CHLORIDE 91 mmol/L (98-107); CREATININE 1.1 mg/dL (0.6-1.3); GLUCOSE 225 mg/dL (74-106); SODIUM SERUM 126 mmol/L (136-145); TOTAL BILIRUBIN 1.8 mg/dL (0.0-1.0); TOTAL PROTEIN, SERUM 4.5 g/dL (6.4-8.2); UREA NITROGEN, BLOOD 34 mg/dL (7-18); WHITE BLOOD COUNT (AUTO) 1.9 K/uL (4.8-10.8)
[2023-07-25 06:25] LABS: POTASSIUM 2.5 mmol/L (3.5-5.1)
[2023-07-25 07:45] LABS: HEMATOCRIT 29.8 % (36-52); HEMOGLOBIN 10.3 g/dL (12.0-18.0); MEAN CORPUSCULAR HEMOGLOBIN 32 pg (27-31); MEAN CORPUSCULAR HGB CONC 35 g/dL (33-37); MEAN CORPUSCULAR VOLUME 93.1 fL (80-94); PLATELET COUNT (AUTO) 24 K/uL (140-450); RED CELL DISTRIBUTION WIDTH 16.2 % (11.6-13.7)
[2023-07-25 08:08] LABS: CARBON DIOXIDE 25.7 mmol/L (21-32); CHLORIDE 91 mmol/L (98-107); CREATININE 1.1 mg/dL (0.6-1.3); GLUCOSE 190 mg/dL (74-106); SODIUM SERUM 127 mmol/L (136-145); UREA NITROGEN, BLOOD 34 mg/dL (7-18)
[2023-07-25 08:09] LABS: WHITE BLOOD COUNT (AUTO) 1.4 K/uL (4.8-10.8)
[2023-07-25 08:09] LABS: POTASSIUM 2.7 mmol/L (3.5-5.1)
[2023-07-25 08:10] LABS: BASOPHILS % (MANUAL) 0 % (0-2); BLASTS, MANUAL % 0 % (0-0); EOSINOPHILS % (MANUAL) 2 % (0-4); LYMPHOCYTES % (MANUAL) 20 % (20-46); METAMYELOCYTES % 0 % (0-0); MONOCYTES % (MANUAL) 2 % (5-12); MYELOCYTES % 0 % (0-0); OTHER CELLS,MANUAL % 0 (0-0); PLASMA CELLS 0; PLATELET ESTIMATE DECREASED; PROMYELOCYTES % 0 % (0-0); SMUDGE CELLS 0
[2023-07-25] MEDS ORDERED: AMIODARONE 200 MG TAB PO SCH (09:00)
[2023-07-25] MEDS: KCL 20 MEQ IN 100 mL PREMIX 200 ML IV SCH ×2 (10:51→15:48)
[2023-07-25] MEDS ORDERED: Z-GUARD PASTE TP PRN (17:25)
[2023-07-25] MEDS: HYDROCORTISONE NA SUCC 100 MG/2 ML VIAL IV SCH (17:31)
[2023-07-25] MEDS: CEFEPIME 2,000 MG in DEXTROSE 5% 100 ML IV SCH (21:15)
[2023-07-26] VITALS (31 sets, daily range): BP systolic 89–137; BP diastolic 52–83; PULSE 29–92; RESP 20–79; TEMP 97.2–98.1; O2SAT 91–100
[2023-07-26] MEDS: Z-GUARD PASTE TP SCH (00:02)
[2023-07-26 05:47] LABS: BASOPHILS % (AUTO) 0.2 % (0.0-2.0); EOSINOPHILS % (AUTO) 1.5 % (0.0-4.0); HEMATOCRIT 26.6 % (36-52); HEMOGLOBIN 9.2 g/dL (12.0-18.0); LYMPHOCYTES # (AUTO) 0.1 K/uL (2.0-11.5); LYMPHOCYTES % (AUTO) 42.1 % (20.5-51.1); MEAN CORPUSCULAR HEMOGLOBIN 32 pg (27-31); MEAN CORPUSCULAR HGB CONC 35 g/dL (33-37); MEAN CORPUSCULAR VOLUME 92.5 fL (80-94); MONOCYTES % (AUTO) 1.3 % (1.7-9.3); NEUTROPHILS # (AUTO) 0.2 K/uL (1.8-7.7); NEUTROPHILS % (AUTO) 54.9 % (42.2-75.2); RED BLOOD CELL COUNT(AUTO) 2.87 MIL/uL (4.20-6.10); RED CELL DISTRIBUTION WIDTH 16.1 % (11.6-13.7)
[2023-07-26 05:56] LABS: PLATELET COUNT (AUTO) 8 K/uL (140-450); WHITE BLOOD COUNT (AUTO) 0.3 K/uL (4.8-10.8)
[2023-07-26 06:11] LABS: ALANINE AMINOTRANSFERASE 17 U/L (12-78); ALBUMIN 0.9 g/dL (3.4-5.0); ALKALINE PHOSPHATASE 208 U/L (50-136); ASPARTATE AMINOTRANSFERASE 28 U/L (15-37); CALCIUM 7.3 mg/dL (8.5-10.1); CARBON DIOXIDE 25.7 mmol/L (21-32); CHLORIDE 92 mmol/L (98-107); GLUCOSE 196 mg/dL (74-106); POTASSIUM 3.7 mmol/L (3.5-5.1); SODIUM SERUM 124 mmol/L (136-145); TOTAL BILIRUBIN 2.4 mg/dL (0.0-1.0); TOTAL PROTEIN, SERUM 4.3 g/dL (6.4-8.2); UREA NITROGEN, BLOOD 32 mg/dL (7-18)
[2023-07-26] MEDS: FOAM DRESSING TP SCH (13:19)
[2023-07-26] MEDS ORDERED: VANCOMYCIN PER PHARMACY MC PRN (19:00)
[2023-07-26] MEDS ORDERED: FILGRASTIM-TBO 300 MCG/0.5 ML SYRINGE SUBQ ONE (21:10)
[2023-07-26] MEDS ORDERED: FILGRASTIM-TBO 300 MCG/0.5 ML SYRINGE SUBQ SCH (21:25)
[2023-07-27] VITALS (33 sets, daily range): BP systolic 88–145; BP diastolic 43–88; PULSE 77–106; RESP 23–44; TEMP 97.9–100.3; O2SAT 86–100
[2023-07-27 03:27] LABS: EOSINOPHILS % (AUTO) 3.2 % (0.0-4.0); HEMATOCRIT 23.4 % (36-52); HEMOGLOBIN 8.1 g/dL (12.0-18.0); LYMPHOCYTES # (AUTO) 0.1 K/uL (2.0-11.5); LYMPHOCYTES % (AUTO) 62.9 % (20.5-51.1); MEAN CORPUSCULAR HEMOGLOBIN 32 pg (27-31); MEAN CORPUSCULAR HGB CONC 35 g/dL (33-37); MEAN CORPUSCULAR VOLUME 92.8 fL (80-94); MONOCYTES % (AUTO) 9.7 % (1.7-9.3); NEUTROPHILS % (AUTO) 24.2 % (42.2-75.2); RED BLOOD CELL COUNT(AUTO) 2.52 MIL/uL (4.20-6.10); RED CELL DISTRIBUTION WIDTH 15.9 % (11.6-13.7)
[2023-07-27 03:29] LABS: WHITE BLOOD COUNT (AUTO) 0.2 K/uL (4.8-10.8)
[2023-07-27 03:30] LABS: PLATELET COUNT (AUTO) 7 K/uL (140-450)
[2023-07-27 03:43] LABS: ALANINE AMINOTRANSFERASE 15 U/L (12-78); ALKALINE PHOSPHATASE 159 U/L (50-136); ANION GAP 11.1 (8-16); ASPARTATE AMINOTRANSFERASE 23 U/L (15-37); CALCIUM 7.5 mg/dL (8.5-10.1); CARBON DIOXIDE 25.5 mmol/L (21-32); CHLORIDE 93 mmol/L (98-107); CREATININE 1.1 mg/dL (0.6-1.3); GLUCOSE 157 mg/dL (74-106); POTASSIUM 3.6 mmol/L (3.5-5.1); SODIUM SERUM 126 mmol/L (136-145); TOTAL BILIRUBIN 3.2 mg/dL (0.0-1.0); TOTAL PROTEIN, SERUM 4.3 g/dL (6.4-8.2); UREA NITROGEN, BLOOD 37 mg/dL (7-18)
[2023-07-27] MEDS: FILGRASTIM-TBO 300 MCG/0.5 ML SYRINGE SUBQ SCH (08:44)
[2023-07-27 15:00] LABS: BLOOD GAS PCO2 34.7 mmHg (35-45); BLOOD GAS PH 7.398 (7.35-7.45); BLOOD GAS PO2 63.8 mmHg (75-100)
[2023-07-27 15:01] LABS: BLOOD GAS BASE EXCESS -3.4 mmol/L (-2.0-2.0); BLOOD GAS HCO3 20.9 mmol/L (22-26); BLOOD GAS O2 SAT% 90.7 % (92.0-98.5)
[2023-07-27 15:55] LABS: HEMATOCRIT 24.9 % (36-52); HEMOGLOBIN 8.5 g/dL (12.0-18.0); LYMPHOCYTES # (AUTO) 0.1 K/uL (2.0-11.5); MEAN CORPUSCULAR HEMOGLOBIN 32 pg (27-31); MEAN CORPUSCULAR HGB CONC 34 g/dL (33-37); PLATELET COUNT (AUTO) 23 K/uL (140-450); RED BLOOD CELL COUNT(AUTO) 2.65 MIL/uL (4.20-6.10)
[2023-07-27 15:57] LABS: WHITE BLOOD COUNT (AUTO) 0.1 K/uL (4.8-10.8)
[2023-07-28] VITALS (36 sets, daily range): BP systolic 85–130; BP diastolic 52–76; PULSE 79–99; RESP 32–46; TEMP 97–98.2; O2SAT 88–100
[2023-07-28 06:13] LABS: LYMPHOCYTES # (AUTO) 0.1 K/uL (2.0-11.5)
[2023-07-28 06:22] LABS: ALANINE AMINOTRANSFERASE 21 U/L (12-78); ALBUMIN 0.9 g/dL (3.4-5.0); ALKALINE PHOSPHATASE 134 U/L (50-136); ANION GAP 12.2 (8-16); ASPARTATE AMINOTRANSFERASE 36 U/L (15-37); CARBON DIOXIDE 22.8 mmol/L (21-32); CHLORIDE 96 mmol/L (98-107); CREATININE 0.9 mg/dL (0.6-1.3); GLUCOSE 199 mg/dL (74-106); SODIUM SERUM 128 mmol/L (136-145); UREA NITROGEN, BLOOD 38 mg/dL (7-18)
[2023-07-28 06:24] LABS: LYMPHOCYTES % (AUTO) 82.7 % (20.5-51.1); MEAN CORPUSCULAR HEMOGLOBIN 34 pg (27-31); MEAN CORPUSCULAR HGB CONC 37 g/dL (33-37); MEAN CORPUSCULAR VOLUME 92.7 fL (80-94); MONOCYTES % (AUTO) 4.4 % (1.7-9.3); NEUTROPHILS % (AUTO) 11.9 % (42.2-75.2); RED BLOOD CELL COUNT(AUTO) 1.73 MIL/uL (4.20-6.10)
[2023-07-28 07:24] LABS: HEMOGLOBIN 5.8 g/dL (12.0-18.0); WHITE BLOOD COUNT (AUTO) 0.1 K/uL (4.8-10.8)
[2023-07-28 07:25] LABS: PLATELET COUNT (AUTO) 11 K/uL (140-450)
[2023-07-28 08:56] LABS: EOSINOPHILS % (AUTO) 2.6 % (0.0-4.0); HEMATOCRIT 24.7 % (36-52); HEMOGLOBIN 8.5 g/dL (12.0-18.0); LYMPHOCYTES # (AUTO) 0.1 K/uL (2.0-11.5); LYMPHOCYTES % (AUTO) 78.6 % (20.5-51.1); MEAN CORPUSCULAR HEMOGLOBIN 33 pg (27-31); MEAN CORPUSCULAR HGB CONC 34 g/dL (33-37); MEAN CORPUSCULAR VOLUME 94.4 fL (80-94); MONOCYTES % (AUTO) 8.1 % (1.7-9.3); NEUTROPHILS % (AUTO) 10.7 % (42.2-75.2); RED BLOOD CELL COUNT(AUTO) 2.61 MIL/uL (4.20-6.10); RED CELL DISTRIBUTION WIDTH 16.6 % (11.6-13.7)
[2023-07-28] MEDS: FILGRASTIM-TBO 300 MCG/0.5 ML SYRINGE SUBQ SCH (08:57)
[2023-07-28] MEDS: LORazepam 1 MG TAB PO PRN (08:57)
[2023-07-28 09:08] LABS: PLATELET COUNT (AUTO) 9 K/uL (140-450); WHITE BLOOD COUNT (AUTO) 0.1 K/uL (4.8-10.8)
[2023-07-28] MEDS: VANCOMYCIN 1,000 MG in DEXTROSE 5% 250 ML IV SCH (10:20)
[2023-07-28] MEDS: KCL 20 MEQ IN 100 mL PREMIX 200 ML IV PRN (10:32)
[2023-07-28] MEDS: MIDODRINE 5 MG TAB PO SCH (13:42)
[2023-07-28] MEDS: BUDESONIDE 0.5 MG/2 ML NEBU INH ONE (16:21)
[2023-07-29] VITALS (31 sets, daily range): BP systolic 88–113; BP diastolic 47–67; PULSE 78–95; RESP 23–38; TEMP 97.1–97.8; O2SAT 91–99
[2023-07-29] MEDS: FOAM DRESSING TP PRN (02:30)
[2023-07-29 06:06] LABS: EOSINOPHILS % (AUTO) 3.3 % (0.0-4.0); HEMATOCRIT 24.2 % (36-52); HEMOGLOBIN 8.3 g/dL (12.0-18.0); LYMPHOCYTES # (AUTO) 0.1 K/uL (2.0-11.5); LYMPHOCYTES % (AUTO) 84.4 % (20.5-51.1); MEAN CORPUSCULAR HEMOGLOBIN 32 pg (27-31); MEAN CORPUSCULAR HGB CONC 34 g/dL (33-37); MEAN CORPUSCULAR VOLUME 94.4 fL (80-94); MONOCYTES % (AUTO) 6.6 % (1.7-9.3); NEUTROPHILS % (AUTO) 5.7 % (42.2-75.2); PLATELET COUNT (AUTO) 23 K/uL (140-450); RED BLOOD CELL COUNT(AUTO) 2.56 MIL/uL (4.20-6.10); RED CELL DISTRIBUTION WIDTH 16.4 % (11.6-13.7)
[2023-07-29 06:34] LABS: WHITE BLOOD COUNT (AUTO) 0.2 K/uL (4.8-10.8)
[2023-07-29 06:57] LABS: ALANINE AMINOTRANSFERASE 60 U/L (12-78); ALKALINE PHOSPHATASE 186 U/L (50-136); ANION GAP 13.8 (8-16); ASPARTATE AMINOTRANSFERASE 107 U/L (15-37); CALCIUM 7.5 mg/dL (8.5-10.1); CARBON DIOXIDE 20.9 mmol/L (21-32); CHLORIDE 95 mmol/L (98-107); CREATININE 1.1 mg/dL (0.6-1.3); GLUCOSE 186 mg/dL (74-106); POTASSIUM 3.7 mmol/L (3.5-5.1); SODIUM SERUM 126 mmol/L (136-145); TOTAL BILIRUBIN 3.2 mg/dL (0.0-1.0); TOTAL PROTEIN, SERUM 4.5 g/dL (6.4-8.2); UREA NITROGEN, BLOOD 47 mg/dL (7-18)
[2023-07-29] MEDS: BUDESONIDE 0.5 MG/2 ML NEBU INH SCH (07:02)
[2023-07-29] MEDS: HYDROcodone/APAP 5/325 MG 1 TAB TAB PO PRN (08:20)
[2023-07-29] MEDS: VANCOMYCIN 1,000 MG in NACL 0.9% 250 ML IV SCH (10:01)
[2023-07-29] MEDS: METOCLOPRAMIDE 10 MG/2 ML INJ VIAL IVP SCH (13:08)
[2023-07-30] VITALS (26 sets, daily range): BP systolic 74–128; BP diastolic 40–90; PULSE 53–90; RESP 19–38; TEMP 97.8–98.7; O2SAT 59–92
[2023-07-30 05:46] LABS: EOSINOPHILS % (AUTO) 2.2 % (0.0-4.0); HEMOGLOBIN 8.9 g/dL (12.0-18.0); LYMPHOCYTES # (AUTO) 0.1 K/uL (2.0-11.5); LYMPHOCYTES % (AUTO) 30.4 % (20.5-51.1); MEAN CORPUSCULAR HEMOGLOBIN 33 pg (27-31); MEAN CORPUSCULAR HGB CONC 34 g/dL (33-37); MEAN CORPUSCULAR VOLUME 95.9 fL (80-94); MONOCYTES # (AUTO) 0.2 K/uL (0.8-1.0); MONOCYTES % (AUTO) 38.7 % (1.7-9.3); NEUTROPHILS # (AUTO) 0.1 K/uL (1.8-7.7); NEUTROPHILS % (AUTO) 28.7 % (42.2-75.2); RED BLOOD CELL COUNT(AUTO) 2.71 MIL/uL (4.20-6.10); RED CELL DISTRIBUTION WIDTH 16.9 % (11.6-13.7)
[2023-07-30 05:57] LABS: PLATELET COUNT (AUTO) 3 K/uL (140-450); WHITE BLOOD COUNT (AUTO) 0.4 K/uL (4.8-10.8)
[2023-07-30 06:48] LABS: ALANINE AMINOTRANSFERASE 104 U/L (12-78); ALBUMIN 0.8 g/dL (3.4-5.0); ALKALINE PHOSPHATASE 270 U/L (50-136); ANION GAP 16.2 (8-16); ASPARTATE AMINOTRANSFERASE 269 U/L (15-37); CALCIUM 7.5 mg/dL (8.5-10.1); CARBON DIOXIDE 17.4 mmol/L (21-32); CHLORIDE 94 mmol/L (98-107); CREATININE 1.6 mg/dL (0.6-1.3); GLUCOSE 149 mg/dL (74-106); POTASSIUM 4.6 mmol/L (3.5-5.1); TOTAL BILIRUBIN 3.4 mg/dL (0.0-1.0); TOTAL PROTEIN, SERUM 4.4 g/dL (6.4-8.2)
[2023-07-30 07:11] LABS: SODIUM SERUM 123 mmol/L (136-145)
[2023-07-30 07:12] LABS: UREA NITROGEN, BLOOD 56 mg/dL (7-18)
[2023-07-30] MEDS: FUROSEMIDE 40 MG/4 ML VIAL IVP SCH (10:17)
[2023-07-30] MEDS: BUMETANIDE 1 MG/4 ML VIAL IV SCH (11:11)
== END 2023-07-30 17:48 | DRG 870 ==
LOC: MED 13:22 → MTU 15:50 → MIC 07-23 05:36
PROVIDERS: ADMIT Student in an Organized Health Care Education/Training Program; ATTEND Student in an Organized Health Care Education/Training Program
PROC: 5A1955Z Respiratory Ventilation, Greater than 96 Consecutive Hours (ICD-10-PCS; principal; 2023-07-22)
PROC: 02HV33Z Insertion of Infusion Device into Superior Vena Cava, Percutaneous Approach (ICD-10-PCS; 2023-07-22)
PROC: 0BH17EZ Insertion of Endotracheal Airway into Trachea, Via Natural or Artificial Opening (ICD-10-PCS; 2023-07-22)
PROC: B548ZZA Ultrasonography of Superior Vena Cava, Guidance (ICD-10-PCS; 2023-07-22)
PROC: 0B9F8ZX Drainage of Right Lower Lung Lobe, Via Natural or Artificial Opening Endoscopic, Diagnostic (ICD-10-PCS; 2023-07-23)
PROC: 05H533Z Insertion of Infusion Device into Right Subclavian Vein, Percutaneous Approach (ICD-10-PCS; 2023-07-25)
PROC: B546ZZA Ultrasonography of Right Subclavian Vein, Guidance (ICD-10-PCS; 2023-07-25)
PROC: 06HY33Z Insertion of Infusion Device into Lower Vein, Percutaneous Approach (ICD-10-PCS; 2023-07-25)
PROC: B54BZZA Ultrasonography of Right Lower Extremity Veins, Guidance (ICD-10-PCS; 2023-07-25)
PROC: 30233N1 Transfusion of Nonautologous Red Blood Cells into Peripheral Vein, Percutaneous Approach (ICD-10-PCS; 2023-07-26)
PROC: 0BH17EZ Insertion of Endotracheal Airway into Trachea, Via Natural or Artificial Opening (ICD-10-PCS; 2023-07-30)
DX: A41.9 Sepsis, unspecified organism (principal); D61.810 Antineoplastic chemotherapy induced pancytopenia; E43 Unspecified severe protein-calorie malnutrition; R65.21 Severe sepsis with septic shock; J96.01 Acute respiratory failure with hypoxia; J69.0 Pneumonitis due to inhalation of food and vomit; J18.9 Pneumonia, unspecified organism; J91.0 Malignant pleural effusion; N17.9 Acute kidney failure, unspecified; C34.92 Malignant neoplasm of unspecified part of left bronchus or lung; C34.91 Malignant neoplasm of unspecified part of right bronchus or lung; E87.1 Hypo-osmolality and hyponatremia; Z20.822 Contact with and (suspected) exposure to COVID-19; I12.9 Hypertensive chronic kidney disease with stage 1 through stage 4 chronic kidney disease, or unspecified chronic kidney disease; E11.22 Type 2 diabetes mellitus with diabetic chronic kidney disease; N18.31 Chronic kidney disease, stage 3a; I48.0 Paroxysmal atrial fibrillation; T45.1X5A Adverse effect of antineoplastic and immunosuppressive drugs, initial encounter; Y92.89 Other specified places as the place of occurrence of the external cause; Z79.899 Other long term (current) drug therapy; Z68.31 Body mass index [BMI] 31.0-31.9, adult
CPT/HCPCS: 31500; 36415; 36430; 36556; 36600; 71045; 71250; 80048; 80053; 80076; 80202; 82550; 82803; 82948; 83605; 83880; 84484; 85025; 85610; 85730; 86022; 86886; 86900; 86901; 87040; 87070; 87081; 87205; 88305; 89220; 93005; 94002; 94003; 94640; 96374; 96375; 97163-GP; 97530; 99291; 99292; C9113; J0282; J0610; J0692; J1447; J1644; J1720; J1815; J1940; J2405; J2543; J2704; J2765; J3360; J3370; J3480; J3490; J7030; J7060; J7626; P9035; Q0092